=== PATIENT | female | born 1975 | race Two or more races ===

== ENCOUNTER 2020-01-26 16:10 | Emergency (ER) | payer BC, MEDICAID ==
[~2020-01-26] VITALS: Ht 157.5 cm; Wt 61.2 kg
[2020-01-26 16:48] VITALS: BP 148/81
[2020-01-26] MEDS ORDERED: SODIUM CHLORIDE 0.9% 1,000 ML IV ONE (17:00)
== END 2020-01-26 20:04 | disposition home or self-care (01) ==
LOC: ER 16:10
DX: U07.1 COVID-19 (principal)
CPT/HCPCS: 36415; 71045; 87426; 87804; 96360; 96361